=== PATIENT | female | born 1955 | race Caucasian/White ===

== ENCOUNTER → 2020-02-19 14:53 | Outpatient (BNVA) | payer OTHER, SELFPAY | PROVIDERS: Family Provider Nurse Practitioner Family; Referring Provider Dermatology; Visit Provider Dermatology | DX: D48.5 Neoplasm of uncertain behavior of skin (principal); L57.0 Actinic keratosis; L82.0 Inflamed seborrheic keratosis; L81.4 Other melanin hyperpigmentation; L82.1 Other seborrheic keratosis; D48.9 Neoplasm of uncertain behavior, unspecified | CPT/HCPCS: 17000; 17003; 17110; 88304; 99203; 99204 ==

== ENCOUNTER 2020-03-27 07:43 | Outpatient (CLI) | payer OTHER, SELFPAY ==
--- NOTE | 2020-03-27 07:50 | MM_ITS ---
WS: [id number] BILATERAL DIGITAL SCREENING MAMMOGRAPHY WITH CAD CLINICAL INFORMATION: SCREENING HISTORY: Screening mammogram. No current complaints. COMPARISON: [id number]. TECHNIQUE: Bilateral CC and MLO views. FINDINGS: The breasts are composed of heterogeneous fibroglandular density tissue, which can limit the detectio n of small underlying mass lesions. No suspicious mass, asymmetry, calcifications, or architectural d istortion. No evidence of malignancy. Stable dystrophic calcification left breast. MM/[place] [id number] IMPRESSION: BI-RADS: 2-Benign FOLLOW UP: 1 Year Follow-up Recommend return to annual screening mammography.
== END 2020-03-27 07:44 | disposition home or self-care (01) ==
LOC: RADSHAW 07:48
PROVIDERS: PCP Nurse Practitioner Family; Visit Provider Nurse Practitioner Family
DX: Z12.31 Encounter for screening mammogram for malignant neoplasm of breast (principal)
CPT/HCPCS: 77067

== ENCOUNTER 2021-06-02 07:51 | Outpatient (CLI) | payer MEDICARE, SELFPAY ==
--- NOTE | 2021-06-02 07:59 | MM_ITS ---
WS: [id number] BILATERAL DIGITAL SCREENING MAMMOGRAPHY WITH CAD CLINICAL INFORMATION: SCREENING HISTORY: Screening mammogram. No current complaints. COMPARISON: March 27, 2020 TECHNIQUE: Bilateral CC and MLO views. FINDINGS: Scattered fibroglandular densities bilaterally. No suspicious focal mass, asymmetry, calcifications, or architectural distortion. No evidence of malignancy. Stable dystrophic calcification left breast. MM/[id number] IMPRESSION: BI-RADS: 2-Benign FOLLOW UP: 1 Year Follow-up Recommend return to annual screening mammography.
== END 2021-06-02 07:52 | disposition home or self-care (01) ==
PROVIDERS: PCP Nurse Practitioner Family; Visit Provider Nurse Practitioner Family
DX: Z12.31 Encounter for screening mammogram for malignant neoplasm of breast (principal)
CPT/HCPCS: 77067

== ENCOUNTER 2021-10-10 05:41 | Day surgery (SDC) | payer MEDICARE, SELFPAY ==
[2021-10-08 12:49] VITALS: BMI 28.0
[2021-10-10 06:19] VITALS: BP 142/81; PULSE 85; RESP 18; TEMP 36.4; O2SAT 96
--- NOTE | 2021-10-10 06:29 | P.HP_ITS ---
Same Day Surgery H&P Indication for Procedure/HPI DATE OF PROCEDURE: October 10, 2021 CHIEF COMPLAINT/INDICATIONFOR SURGICAL PROCEDURE: I am here for colonoscopy PREOP DIAGNOSIS: Screening colonoscopy PLANNED PROCEDURE: Operation Date: 10/10/21 07:00 Proposed Procedures p Colonoscopy 67381/z12.11(Not Applicable) - Guero Robertson MD This is a pleasant 66 years old female patient referred to my practice for screening colonoscopy. ROS All systems have been reviewed negative except as for the above or per problem list. Medications/Allergies* Home Medications Medication Instructions Recorded Confirmed Type bupropion HCl 150 mg 24 hr tablet, 150 mg PO QAM 02/19/20 10/08/21 History extended release (Wellbutrin XL) citalopram 10 mg tablet 10 mg PO DAILY 10/08/21 10/08/21 History levothyroxine 88 mcg tablet 88 mcg PO DAILY 10/08/21 10/08/21 History rosuvastatin 20 mg tablet 20 mg PO BEDTIME 10/08/21 10/10/21 History Allergies/Adverse Reactions Allergy/AdvReac Type Severity Reaction Status Date / Time No Known Allergies Allergy Verified 10/10/21 06:29 Pertinent History/Comorbid Conditions* Medical History (Updated 02/18/21 @ 09:31 by Kirsten Easley DO) Depression Family history of thyroid problem Hypothyroid Surgical History (Updated 02/18/21 @ 09:31 by Kirsten Easley DO) No history of previous surgery Family History (Updated 02/19/20 @ 15:24 by Joy Mancini LPN) Diabetes Social History Smoking and tobacco status: never smoked Alcohol intake: current Alcohol intake frequency: few times a month History of recent travel: No Pertinent Exam Findings alert, oriented x 3, clear to auscultation bilaterally, regular rate & rhythm and procedure specific exam findings (Abdominal examination nontender nondistended soft) Recommendations Surgery/Procedure today (Colonoscopy with possible biopsy) Other Plans: Plan of care; After thorough history and physical examination and reviewing the chart, plan to perform screening colonoscopy. I discussed with the patient in details the risks,benefits,alternatives and indications.The risk of aspiration, bleeding, soft tissue injury, perforation of the colon and other potential concomitant complications were explained to the patient in details,also the potential need for Laproscoy/Laparotomy to repair any related complications including but not limited to colectomy and or Closotomy.The patient understood this well and did agree to proceed. Rationale was carefully and clearly discussed with the patient.Appropriate informed consent have been reviewed and signed All questions have been answered and all concerns have been addressed to patient's satisfaction. Verbal and written Instructions were given to the patient for colonoscopy prep Coding Level of Care Code Acute Instructional Designer for Sebastian Ocasio
--- NOTE | 2021-10-10 06:41 | ANES.PREANE2 ---
Pre-Anesthetic Assessment Height/Weight: Height 1.7 m Weight 81.193 kg Temp Pulse Resp BP Pulse Ox 97.6 F 5 L 18 142/81 96 10/10/21 06:19 10/10/21 06:19 10/10/21 06:19 10/10/21 06:19 10/10/21 06:19 Preop Diagnosis: Screening colonoscopy Operation Date: 10/10/21 07:00 Proposed Procedures p Colonoscopy 91326/[id number](Not Applicable) - Guero Robertson MD Familial anesthetic complications: patient has never had anesthesia, no family history. Last intake: Intake Last Liquid Date 10/09/21 Last Liquid Time 23:50 Last Solid Date 10/08/21 Last Solid Time 17:00 Social Alcohol (few times a month.) Airway Submandibular: within normal limits Cervical ROM: within normal limits Mallampati: Class II Dentition: full History/ROS No significant history except as noted Pulmonary None reported CV/HEM None reported None reported Hepatic None reported GI Gastroesophageal Reflux Disease (controlled.) Metabolic Hyperlipidemia and Thyroid Disease [facility] None reported Neuropsych Anxiety and Depression Anesthetic Plan ASA status: 2 Anesthesia: Anesthesia Evaluation and MAC Medications/Allergies Home Medications Medication Instructions Recorded Confirmed Last Taken Type bupropion HCl 150 mg 24 hr tablet, 150 mg PO QAM 02/19/20 10/08/21 10/09/21 History extended release (Wellbutrin XL) citalopram 10 mg tablet 10 mg PO DAILY 10/08/21 10/08/21 10/09/21 History levothyroxine 88 mcg tablet 88 mcg PO DAILY 10/08/21 10/08/21 10/09/21 History rosuvastatin 20 mg tablet 20 mg PO BEDTIME 10/08/21 10/10/21 10/08/21 History Allergies Allergy/AdvReac Type Severity Reaction Status Date / Time No Known Allergies Allergy Verified 10/10/21 06:29 [facility] Anesthesia Medical History Depression Family history of thyroid problem Hypothyroid Surgical History No history of previous surgery Family History Other Diabetes Social History Smoking and tobacco status: never smoked Alcohol intake: current Alcohol intake frequency: few times a month History of recent travel: No Data Anesthesia Cardiac Studies: No Data to Display
[2021-10-10] MEDS: sodium chloride 0.9% 1,000 ML 30 ML IV (06:43)
[2021-10-10 07:22] VITALS: BP 105/63; PULSE 97; RESP 18; TEMP 36.3; O2SAT 96
[2021-10-10 07:43] VITALS: BP 118/72; PULSE 98; RESP 18; TEMP 36.3; O2SAT 98
--- NOTE | 2021-10-10 13:16 | ANE.PACU2 ---
Inpatient post-anesthesia follow up: Airway intact: Yes Vital signs: Temperature 97.4 F Pulse Rate 98 Respiratory Rate 18 Blood Pressure 118/72 Pulse Oximetry 98 Oxygen Delivery Me thod Room Air Oxygen Flow Rate Fraction of Inspir ed Oxygen Hydration adequate: Yes Nausea and vomiting: No Pain level: 2 Mental status: Baseline
== END 2021-10-10 07:49 | disposition home or self-care (01) ==
PROVIDERS: PCP Nurse Practitioner Family; Visit Provider Surgery
PROC: 0DJD8ZZ Inspection of Lower Intestinal Tract, Via Natural or Artificial Opening Endoscopic (ICD-10-PCS; CPT 45378; principal; 2021-10-10 07:00)
DX: Z12.11 Encounter for screening for malignant neoplasm of colon (principal); F32.9 Major depressive disorder, single episode, unspecified; E03.9 Hypothyroidism, unspecified; K21.9 Gastro-esophageal reflux disease without esophagitis; E78.5 Hyperlipidemia, unspecified; F41.9 Anxiety disorder, unspecified
CPT/HCPCS: G0121; J2704; J7030

== ENCOUNTER 2022-06-19 07:35 | Outpatient (CLI) | payer MEDICARE, SELFPAY ==
--- NOTE | 2022-06-19 07:42 | MM_ITS ---
WS: [id number] BILATERAL SCREENING DIGITAL TOMOSYNTHESIS MAMMOGRAM WITH CAD HISTORY: SCREENING COMPARISON: 06/02/2021, 03/27/2020 Bilateral CC and MLO views with tomosynthesis and synthetic mammography submitted. Computer aided det ection analyzed. Breast composition: There are scattered areas of fibroglandular density. No suspicious masses, microc alcifications or architectural distortion. Benign coarse calcification central LEFT breast at 12:00. Consistent with a degenerating fibroadenoma. MM/[place] [id number] IMPRESSION: BI-RADS: 2-Benign FOLLOW UP: 1 Year Follow-up
== END 2022-06-19 07:36 | disposition home or self-care (01) ==
PROVIDERS: PCP Nurse Practitioner Family; Visit Provider Nurse Practitioner Family
DX: Z12.31 Encounter for screening mammogram for malignant neoplasm of breast (principal)
CPT/HCPCS: 77063; 77067

== ENCOUNTER → 2023-02-25 15:22 | Outpatient (BNVA) | payer MEDICARE, SELFPAY | PROVIDERS: PCP Nurse Practitioner Family; Visit Provider Nurse Practitioner Family | DX: L82.1 Other seborrheic keratosis (principal); L81.4 Other melanin hyperpigmentation; D22.5 Melanocytic nevi of trunk; L57.8 Other skin changes due to chronic exposure to nonionizing radiation; L57.0 Actinic keratosis | CPT/HCPCS: 17000; 99213 ==

== ENCOUNTER 2023-06-25 07:43 | Outpatient (CLI) | payer MEDICARE, SELFPAY ==
--- NOTE | 2023-06-25 08:01 | MM_ITS ---
WS: [id number] BILATERAL SCREENING DIGITAL TOMOSYNTHESIS MAMMOGRAM WITH CAD HISTORY: SCREEN COMPARISON: 06/19/2022, 06/02/2021 and 11/27/2016 Bilateral CC and MLO views with tomosynthesis and synthetic mammography submitted. Computer aided det ection analyzed. Breast composition: There are scattered areas of fibroglandular density. No suspicious masses, microc alcifications or architectural distortion. Dense benign calcification central LEFT breast at 12:00 st able over multiple prior years. IMPRESSION: MM/[place] [id number] BI-RADS: 2-Benign FOLLOW UP: 1 Year Follow-up
== END 2023-06-25 07:44 | disposition home or self-care (01) ==
LOC: RAD 07:43
PROVIDERS: PCP Nurse Practitioner Family; Visit Provider Nurse Practitioner Family
DX: Z12.31 Encounter for screening mammogram for malignant neoplasm of breast (principal); R92.323 Mammographic fibroglandular density, bilateral breasts; R92.1 Mammographic calcification found on diagnostic imaging of breast
CPT/HCPCS: 77063; 77067

== ENCOUNTER → 2024-03-03 08:25 | Outpatient (BNVA) | payer MEDICARE, SELFPAY | PROVIDERS: PCP Nurse Practitioner Family; Visit Provider Nurse Practitioner Family | DX: L57.0 Actinic keratosis (principal); L82.1 Other seborrheic keratosis; L81.4 Other melanin hyperpigmentation; D22.5 Melanocytic nevi of trunk; L57.8 Other skin changes due to chronic exposure to nonionizing radiation; L82.0 Inflamed seborrheic keratosis | CPT/HCPCS: 17000; 17110; 99213 ==

== ENCOUNTER 2024-07-14 08:27 | Outpatient (CLI) | payer MEDICARE, SELFPAY ==
--- NOTE | 2024-07-14 | MM_ITS ---
WS: [id number] SCREENING DIGITAL BREAST TOMOSYNTHESIS MAMMOGRAM WITH CAD HISTORY: ANNUAL SCREENING COMPARISON: 06/25/2023, 06/19/2022, 01/14/2018 Bilateral CC and MLO with tomosynthesis and synthetic mammography submitted. Computer aided detection analyzed. Breast composition: There are scattered areas of fibroglandular density. Dense coarse calcification 12:00 LEFT breast middle depth is stable. New increasing area of density and asymmetry in the upper outer quadrant LEFT breast at middle depth. This area needs to be further evaluated. MM/MM [facility] tomosynthesis [id number] IMPRESSION: BI-RADS: 0 - Incomplete: Need additional imaging evaluation. FOLLOW UP: Need Additional Imaging LEFT breast: Spot compression views (CC and MLO). True ML. Ultrasound to follow if abnormality persists.
== END 2024-07-14 08:28 | disposition home or self-care (01) ==
PROVIDERS: PCP Nurse Practitioner Family; Visit Provider Nurse Practitioner Family
DX: Z12.31 Encounter for screening mammogram for malignant neoplasm of breast (principal); R92.323 Mammographic fibroglandular density, bilateral breasts; R92.1 Mammographic calcification found on diagnostic imaging of breast; N64.89 Other specified disorders of breast; R92.8 Other abnormal and inconclusive findings on diagnostic imaging of breast
CPT/HCPCS: 77063; 77067

== ENCOUNTER 2024-09-12 14:06 | Outpatient (CLI) | payer MEDICARE, SELFPAY ==
--- NOTE | 2024-09-12 14:13 | MM_ITS ---
WS: [id number] ADDITIONAL VIEWS LEFT MAMMOGRAM WITH DIGITAL BREAST TOMOSYNTHESIS. LEFT breast ultrasound, limited. HISTORY: ABNORMAL MAMMO COMPARISON: 07/14/2024, 06/25/2023, 06/19/2022, 06/02/2021 Spot compression views LEFT breast in CC, MLO projections and true ML submitted with digital breast tomosynthesis and SM. Breast composition: There are scattered areas of fibroglandular density. Asymmetry in the upper outer quadrant of the LEFT breast at middle depth nearly completely resolves with additional imaging. There is a benign coarse calcification towards 12:00. LEFT wrist ultrasound, limited. Coarse calcification is identified at 12:00 as also seen on the mammogram measuring 5 x 4 x 4 mm. No increased vascularity. No shadowing or mass in the upper outer quadrant. MM/MM diag [facility] tomosynthesis [id number] IMPRESSION: BI-RADS: 2 - Benign. FOLLOW UP: 1 Year Follow-up
== END 2024-09-12 14:07 | disposition home or self-care (01) ==
PROVIDERS: PCP Nurse Practitioner Family; Visit Provider Nurse Practitioner Family
DX: R92.8 Other abnormal and inconclusive findings on diagnostic imaging of breast (principal); R92.323 Mammographic fibroglandular density, bilateral breasts; R92.1 Mammographic calcification found on diagnostic imaging of breast; N63.21 Unspecified lump in the left breast, upper outer quadrant
CPT/HCPCS: 76642; 77061; G0279

== ENCOUNTER → 2025-03-02 08:38 | Outpatient (BNVA) | payer MEDICARE, SELFPAY | PROVIDERS: PCP Nurse Practitioner Family; Visit Provider Nurse Practitioner Family | DX: L82.1 Other seborrheic keratosis (principal); L81.4 Other melanin hyperpigmentation; L57.8 Other skin changes due to chronic exposure to nonionizing radiation; D22.5 Melanocytic nevi of trunk; D48.5 Neoplasm of uncertain behavior of skin; L57.0 Actinic keratosis | CPT/HCPCS: 11102; 17000; 99213 ==